=== PATIENT | female | born 1995 ===

== ENCOUNTER 2019-08-17 22:32 | Emergency (ER) | payer OTHER ==
[~2019-08-17] VITALS: Ht 160 cm; Wt 56.7 kg
--- NOTE | 2019-08-17 22:51 | NUR ---
Dr. Luther at bedside for MSE.
[2019-08-17] MEDS ORDERED: HYDROCODONE/APAP 5-325MG TABLET ONE (23:06)
[2019-08-17] MEDS ORDERED: IBUPROFEN 800 MG TABLET ONE (23:07)
--- NOTE | 2019-08-17 23:09 | NUR ---
Pt out of ER for CT.
[2019-08-17] MEDS ORDERED: IBUPROFEN 800 MG TABLET PO ONE (23:15)
[2019-08-17] MEDS ORDERED: HYDROCODONE/APAP 5-325MG TABLET PO ONE (23:15)
--- NOTE | 2019-08-17 23:29 | NUR ---
Pt back to ER from CT.
--- NOTE | 2019-08-18 00:02 | NUR ---
Patient discharged to home in stable conditon. Written and verbal after care instructions given. Patient verbalizes understanding of instructions. Pt out of ER with steady gait, no acute signs of distress, VSS, all belongings taken, to be driven home via private vehicle by significant other.
[2019-08-18 00:03] VITALS: BP 108/75
== END 2019-08-18 00:04 | disposition home or self-care (01) ==
LOC: ER 22:44
DX: S14.3XXA Injury of brachial plexus, initial encounter (principal); Z88.2 Allergy status to sulfonamides; W20.8XXA Other cause of strike by thrown, projected or falling object, initial encounter; Y93.89 Activity, other specified; Y92.89 Other specified places as the place of occurrence of the external cause; Y99.0 Civilian activity done for income or pay
CPT/HCPCS: 72125; 73200; A4663

== ENCOUNTER 2019-08-22 11:23 | Emergency (ER) | END 2019-08-22 12:19 | disposition home or self-care (01) | DX: S14.3XXA Injury of brachial plexus, initial encounter (principal); Z88.2 Allergy status to sulfonamides; X58.XXXA Exposure to other specified factors, initial encounter; Y93.89 Activity, other specified; Y92.89 Other specified places as the place of occurrence of the external cause; Y99.8 Other external cause status | CPT/HCPCS: 96372; 99283; J1885 ==